=== PATIENT | male | born 1970 | race Caucasian/White ===

== ENCOUNTER 2023-04-08 04:17 | Emergency (ER) | payer OTHER ==
--- OUTSIDE RECORDS SUMMARY | 2023-04-08 04:21 | XMS REPORT | Continuity of Care Document ---
:1970 Author Organization [facility] t Address [address] [place] [address] [address] [place] [address] Care Team Providers Name Role Phone VIKTORIYA ONEAL Primary Care Physician Unavailable AMRITA RODRIGUEZ Attending Clinician Unavailable Viktoriya Iniguez Attending Clinician Amrita Rodriguez MD Attending Clinician Doctor Unassigned, [place] Attending Clinician Unavailable VIKTORIYA ONAEL Attending Clinician Unavailable Lab, Ang - Db Attending Clinician Unavailable AMRITA RODRIGUEZ Admitting Clinician Unavailable Payers Payer Name Policy Type Policy Number Effective Date Expiration Date S caprice [facility] [id number] 2022 00:00:00 Problems Condition Condition Condition Status Onset Resolution Last Treating Co mments Source Name Details Category Date Date Treatment Clinician Date Right Right Disease Active 2021-08 Overview: Fer s inguinal inguinal 2-16 Formattin ity of hernia hernia 00:00: g of this [place] 00 note Medical might be Branch different from the original. Added automatic ally from request for surgery [id number] No known No known Disease Unive rs active active ity of problems problems [facility] [place] Allergies, Adverse Reactions, Alerts Allergy Allergy Status Severity Reaction(s) Onset Inactive Treating Comm ents Source Name Type Date Date Clinician NO KNOWN Drug Active Univers ALLERGIE Class ity of S [facility] [place] Social History Social Habit Start Date Stop Date Quantity Comments Source Exposure to 2022-07-27 2022-08-06 Not sure University of SARS-CoV-2 00:00:00 09:11:00 [facility] (event) [place] Tobacco use and 2022-07-09 2022-07-09 Smokeless tobacco Un iversity of exposure 00:00:00 00:00:00 non-user [facility] [place] Sex Ass[birth year] At [birth year] Universit y of 00:00:00 00:00:00 [facility] [place] Smoking Status Start Date Stop Date Source Never smoked tobacco [facility] Medications Ordered Filled Start Stop Current Ordering Indication Dosage Frequency Signature Comments Components Source Medication Medication Date Date Medication? Clinician (SIG) Name Name ergocalcife 2021-08 Yes [id number] Take 1 Univers rol, 1-20 capsule by ity of vitamin d2, 00:00: mouth [place] 1,250 mcg 00 weekly. Medical (50,000 Branch unit) capsule ergocalcife 2021-08 Yes [id number] Take 1 Univers rol, 1-20 capsule by ity of vitamin d2, 00:00: mouth [place] 1,250 mcg 00 weekly. Medical (50,000 Branch unit) capsule ergocalcife 2021-08 Yes [id number] Take 1 Univers rol, 1-20 capsule by ity of vitamin d2, 00:00: mouth [place] 1,250 mcg 00 weekly. Medical (50,000 Branch unit) capsule ergocalcife 2021-08 Yes [id number] Take 1 Univers rol, 1-20 capsule by ity of vitamin d2, 00:00: mouth [place] 1,250 mcg 00 weekly. Medical (50,000 Branch unit) capsule ergocalcife 2021-08 Yes [id number] Take 1 Univers rol, 1-20 capsule by ity of vitamin d2, 00:00: mouth [place] 1,250 mcg 00 weekly. Medical (50,000 Branch unit) capsule ergocalcife 2021-08 Yes [id number] Take 1 Univers rol, 1-20 capsule by ity of vitamin d2, 00:00: mouth [place] 1,250 mcg 00 weekly. Medical (50,000 Branch unit) capsule ergocalcife 2021-08 Yes [id number] Take 1 Univers rol, 1-20 capsule by ity of vitamin d2, 00:00: mouth [place] 1,250 mcg 00 weekly. Medical (50,000 Branch unit) capsule No known 2021-08 No No known Unive rs medications 1-17 medication it y of 12:30: s [address] No known 2021-08 No No known Unive rs medications -17 medication it y of 12:30: s [address] No known 2021-08 No No known Unive rs medications -17 medication it y of 12:30: s [address] No known 2021-08 No No known Unive rs medications -17 medication it y of 09:39: s [address] Vital Signs Vital Name Observation Time Observation Value Comments Source Systolic blood 2022-08-06 15:46:00 170 mm[Hg] Univer sity of pressure [facility] [place] Diastolic blood 2022-08-06 15:46:00 116 mm[Hg] Unive rsity of [facility] Heart rate 2022-08-06 15:46:00 92 /min Universi ty of [facility] [place] Body temperature 2022-08-06 15:46:00 36.61 [facility] ersity [facility] Respiratory rate 2022-08-06 15:46:00 18 /min Univ ersity [facility] Body height 2022-08-06 15:46:00 162.6 cm Universi ty of [facility] [place] Body weight 2022-08-06 15:46:00 68.04 kg Universi ty of [facility] [place] BMI 2022-08-06 15:46:00 25.75 kg/m2 Universi ty [facility] Oxygen saturation in 2022-08-06 15:46:00 94 /min University Arterial blood by [facility] Pulse oximetry Branch Systolic blood 2022-07-09 15:35:00 150 mm[Hg] Univer sity of [facility] Diastolic blood 2022-07-09 15:35:00 106 mm[Hg] Unive rsity of [facility] Heart rate 2022-07-09 15:34:00 70 /min Universi ty of [facility] [place] Body height 2022-07-09 15:34:00 162.6 cm Universi ty of [facility] [place] Body weight 2022-07-09 15:34:00 69.763 kg Universi ty of [facility] [place] BMI 2022-07-09 15:34:00 26.40 kg/m2 Universi ty of [facility] [place] Oxygen saturation in 2022-07-09 15:34:00 99 /min University of Arterial blood by [facility] Pulse oximetry [place] Procedures Procedure Date / Time Performed Performing Clinician Sourc e EXTERNAL FIT DNA 2022-08-11 16:00:00 Doctor Unassigned, [facility] CONS[facility]REFUSAL FOR 2022-08-06 15:15:01 Doctor Unassigned, No [facility] AND Name [facility] TREATMENT COMP. METABOLIC PANEL 2022-07-09 16:12:00 Viktoriya Oneal [facility] ([id number]) [facility] VITAMIN D, 25-[place] 2022-07-09 16:12:[address] [facility] Encounters Start End Encounter Admission Attending Care Care Encounter Source Date/Time Date/Time Type Type Clinicians Facility Department ID 2022-08-14 [facility] [id number] Univers 16:02:37 AMRITA pierre [facility] 2022-08-21 2022-08-21 [facility] [id number] Univers 00:00:00 00:00:00 [facility] [id number] it y of JOSE ANGEL 4.2.7.2.686 Higinio as ADELINA?BLEA [id number] Ut vu [address] MEDICAL OFFICE BUILDING 2022-08-06 2022-08-06 [facility] [id number] Univers 09:00:00 10:31:11 AMRITA pierre [facility] 2022-08-06 2022-08-06 Office [facility] [id number] Univers 09:00:00 09:30:00 Visit Amrita WALTER 350.1.13.10 i ty [place] PROF[place] [id number] Ut vu LÓPEZ [facility] BUILDING 2022-08-06 2022-08-06 Prep [facility] [id number] Univers 00:00:00 00:00:00 Surgery Amrita WALTER 350.1.13.10 i ty [facility] 4.2.7.2.[place] [id number] Ut vu [facility] [address] [facility] 2022-08-06 2022-08-[address] [facility] [id number] Univers 00:00:00 00:00:00 Secure Msg Viktoriya MARTIN 350.1.13.10 ity of [place] 4.2.7.2.686 Higinio as ADELINA?BLEA [id number] [facility] 044 [facility] OFFICE [facility] 2022-08-06 2022-08-06 Orders Doctor VIKTORIA [id number] Univers 00:00:00 00:00:00 Only Unassigned, FELICITA 350.1.13.10 ity of [place] [facility] 4.2.7.2.686 Higinio as [id number] [address] 2022-07-23 2022-07-23 Outpatient Sherman RODRIGUEZ [facility] [id number] Univers 08:00:00 08:00:00 AMRITA dennisarnoldo [facility] 2022-07-09 2022-07-09 Outpatient R LENCHO [facility] [id number] Univers 09:00:00 12:10:13 VIKTORIYA pierre [facility] 2022-07-09 2022-07-09 Office [facility] [id number] Univers 09:00:00 12:10:13 Visit Viktoriya MARTIN 350.1.13.10 it y of [place] 4.2.7.2.686 Higinio as ADELINA?BLEA [id number] [facility] 044 [facility] OFFICE [facility] 2022-07-09 2022-07-09 Monorail [facility], Ang - Db [facility] 1.2.840.1 [id number] Univers 10:15:00 10:30:00 Visit Viktoriya Oneal 350.1.13.10 it[facility] 4.2.7.2.686 Higinio as ADELINA?BLEA [id number] [facility] 353 [facility] OFFICE [facility] Results Test Description Test Time Test Comments Results Result Comments Source VITAMIN D, 25-[place] 2022-07-10 01:08:55 Test Item Value Reference Range Interpretation Comme nts VIT D 25OH (test code = 20858-8) 18 ng/mL 25-80 L BHANU (test code = BHANU) Deficiency: <20 ng/mLInsufficiency: 20-24 ng/mLOptimal: 25-80 ng/mL Lab Interpretation (test code = 49103-8) Abnormal [facility]. METABOLIC PANEL ([id number])2022-07-09 21:08:16 Test Item Value Reference Range Interpretation Comments NA (test code = 142 mmol/L 135-145 7148986742) K (test code = 4.8 mmol/L 3.5-5.0 4036237624) CL (test code = 106 mmol/L 98-108 3284573081) CO2 TOTAL (test code = 28 mmol/L 23-31 8408046259) AGAP (test code = 2-16 9352333734) BUN (test code = 25 mg/dL 7-23 H 7434145266) GLUCOSE (test code = 78 mg/dL 70-110 5861192214) CREATININE (test code = 1.32 mg/dL 0.60-1.25 H 1820405722) TOTAL BILI (test code = 1.0 mg/dL 0.1-1.0 1039977487) CALCIUM (test code = 9.8 mg/dL 8.6-10.6 1081909856) T PROTEIN (test code = 6.7 g/dL 6.3-8.2 0666181407) ALBUMIN (test code = 4.1 g/dL 3.5-5.0 0416122907) ALK PHOS (test code = 77 U/L 34-122 9492772312) ALTv (test code = 31 U/L 5-50 1742-6) AST(SGOT) (test code = 39 U/L 13-40 7398916084) eGFR (test code = mL/min/1.73m2 0900430177) BHANU (test code = BHANU) Association of Glomerular Filtration Rate (GFR) and Staging of Kidney Disease* + --+ --+ ------+| GFR (mL/min/1.73 m2) ?| With Kidney Damage ?| ?Without Kidney Damage+ --------+ --------+ +| ?>90 ?| ?Stage one ?| ? Normal ?+ ---+ ---+ -------+| ?60-89 ?| ?Stage two ?| ? Decreased GFR ? + --+ --+ ------+| ?30-59 ?| ?Stage three ?| ? Stage three ? + --+ --+ ------+| ?15-29 ?| ?Stage four ? | ? Stage four ?+ ---+ ---+ -------+| ?<15 (or dialysis) ? ?| ?Stage five ? | ? Stage five ?+ ---+ ---+ -------+ *Each stage assumes the associated GFR level has been in effect for at least three months. ?Stages 1 to 5, with or without kidney disease, indicate chronic kidney disease. Notes: Determination of stages one and two (with eGFR >59mL/min/1.73 m2) requires estimation of kidney damage for at least three months as defined by structural or functional abnormalities of the kidney, manifested by either:Pathological abnormalities or Markers of kidney damage (including abnormalities in the composition of the blood or urine or abnormalities in imaging tests). Lab Interpretation Abnormal (test code = 00367-4) [facility]. METABOLIC PANEL ([id number])2022-07-09 21:08:16 Test Item Value Reference Range Interpretation Comments NA (test code = 142 mmol/L 135-145 2032973790) K (test code = 4.8 mmol/L 3.5-5.0 9025586332) CL (test code = 106 mmol/L 98-108 2924905481) CO2 TOTAL (test code = 28 mmol/L 23-31 2707612772) AGAP (test code = 2-16 7291513990) BUN (test code = 25 mg/dL 7-23 H 3507351478) GLUCOSE (test code = 78 mg/dL 70-110 9168696004) CREATININE (test code = 1.32 mg/dL 0.60-1.25 H 7197680770) TOTAL BILI (test code = 1.0 mg/dL 0.1-1.9 9139478496) CALCIUM (test code = 9.8 mg/dL 8.6-10.6 5579153275) T PROTEIN (test code = 6.7 g/dL 6.3-8.2 7633987766) ALBUMIN (test code = 4.1 g/dL 3.5-5.0 2320354895) ALK PHOS (test code = 77 U/L 34-122 1966695727) ALTv (test code = 31 U/L 5-50 1742-6) AST(SGOT) (test code = 39 U/L 13-40 3092028238) eGFR (test code = mL/min/1.73m2 1157326545) BHANU (test code = BHANU) Association of Glomerular Filtration Rate (GFR) and Staging of Kidney Disease* + --+ --+ ------+| GFR (mL/min/1.73 m2) ?| With Kidney Damage ?| ?Without Kidney Damage+ --------+ --------+ +| ?>90 ?| ?Stage one ?| ? Normal ?+ ---+ ---+ -------+| ?60-89 ?| ?Stage two ?| ? Decreased GFR ? + --+ --+ ------+| ?30-59 ?| ?Stage three ?| ? Stage three ? + --+ --+ ------+| ?15-29 ?| ?Stage four ? | ? Stage four ?+ ---+ ---+ -------+| ?<15 (or dialysis) ? ?| ?Stage five ? | ? Stage five ?+ ---+ ---+ -------+ *Each stage assumes the associated GFR level has been in effect for at least three months. ?Stages 1 to 5, with or without kidney disease, indicate chronic kidney disease. Notes: Determination of stages one and two (with eGFR >59mL/min/1.73 m2) requires estimation of kidney damage for at least three months as defined by structural or functional abnormalities of the kidney, manifested by either:Pathological abnormalities or Markers of kidney damage (including abnormalities in the composition of the blood or urine or abnormalities in imaging tests). Lab Interpretation Abnormal (test code = 76014-4) [facility]"
[2023-04-08] MEDS ORDERED: lisinopriL 20 MG TAB ONE (05:21)
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
[2023-04-08] MEDS ORDERED: cloNIDine HCL 0.1 MG TAB ONE (06:09)
[2023-04-08 06:13] VITALS: TEMP 98
[2023-04-08 06:16] VITALS: BP 141/116; O2SAT 95
--- NOTE | 2023-04-08 13:32 | RAD REPORT ---
EXAM DESCRIPTION: RAD - Ankle Left 3 View - 04/08/2023 5:00 am CLINICAL HISTORY: PAIN COMPARISON: None. TECHNIQUE: XR ANKLE 3 OR MORE VIEWS 04/08/2023 4:45 AM CDT FINDINGS: There is no fracture. Joint spaces are preserved. There is moderate severe diffuse soft tissue swelling. There is a small calcaneal spur. IMPRESSION: No acute osseous findings. Electronically signed by: Gio Hutchins MD 04/08/2023 5:36 AM CDT Due to temporary technical issues with the PACS/Fluency reporting system, reports are being signed by the in house radiologists without review as a courtesy to insure prompt reporting. The interpreting radiologist is fully responsible for the content of the report.
== END 2023-04-08 06:07 | disposition home or self-care (01) ==
LOC: ER 04:17
DX: M25.572 Pain in left ankle and joints of left foot (principal)
CPT/HCPCS: 99284